=== PATIENT | female | born 2000 | race African-American/Black ===

== ENCOUNTER 2018-08-29 02:17 | Emergency (ER) | payer OTHER ==
[2018-08-29] MEDS ORDERED: ACETAMINOPHEN 325 MG TABLET PO ONE (05:35)
[2018-08-29] MEDS ORDERED: CLINDAMYCIN HCL 150 MG CAPSULE PO ONE ×2 (05:48)
--- NOTE | 2018-08-29 05:52 | ER Document Report ---
HPI - HPI Patient complains to provider of: tooth pain Time Seen by Provider: 08/29/18 05:35 Pain Level: 4 Context: Patient is a 18-year-old female presents to the emergency department for left lower tooth pain. Patient states she has had a left lower tooth pain for "a minute now." States that she was in the waiting room she noticed some pus and blood in her mouth and a sharp pain in her left lower tooth. States she was able to spit out that pus and blood but continues with generalized plane. Tooth in question is #18. Patient states she knows that she had a filling removed a couple of months ago after eating some candy. Patient states she does have an appointment with a dentist on 09 September. Patient is denying any fevers. - REPRODUCTIVE Reproductive: DENIES: : Past Medical History - General Information source: Patient - Social History Smoking Status: Unknown if Ever Smoked Family History: Reviewed & Not Pertinent Vertical Provider Document - CONSTITUTIONAL Agree With Documented VS: Yes Notes: GENERAL: Alert, interacts well. No acute distress. HEAD: Normocephalic, atraumatic. EYES: Pupils equal, round, and reactive to light. Extraocular movements intact. ENT: Oral mucosa moist, tongue midline. Tooth in question #18, erythema noted to the gumline, no area of fluctuance or induration noted. Tooth major decay, other dentition appears well kept. No Ludewig's angina noted NECK: Full range of motion. Supple. Trachea midline. No lymphadenopathy appreciated LUNGS: Clear to auscultation bilaterally, no wheezes, rales, or rhonchi. No respiratory distress. HEART: Regular rate and rhythm. No murmur ABDOMEN: Soft, non-tender. Non-distended. Bowel sounds present in all 4 quadrants. EXTREMITIES: Moves all 4 extremities spontaneously. No edema, normal radial and dorsalis pedis pulses bilaterally. No cyanosis. BACK: no cervical, thoracic, lumbar midline tenderness. No saddle anesthesia, normal distal neurovascular exam. NEUROLOGICAL: Alert and oriented x3. Normal speech. cranial nerves II through XII grossly intact PSYCH: Normal affect, normal mood. SKIN: Warm, dry, normal turgor. No rashes or lesions noted. - INFECTION CONTROL TRAVEL OUTSIDE OF THE [place] IN LAST 30 DAYS: No Course - Re-evaluation Re-evalutation: 05/31/19 05:50 Discussed use of [id number] Tylenol Motrin for generalized pain and also clindamycin as antibiotic choice. Discussed need to continue following up with dentist and return precautions. Patient stable for discharge - Vital Signs Vital signs: Temp Pulse Resp BP Pulse Ox 98.1 F 57 L 16 120/73 98 08/29/18 02:23 08/29/18 02:23 08/29/18 02:23 08/29/18 02:23 08/29/18 02:23 Discharge - Discharge Clinical Impression: Toothache, Dental caries Condition: Stable Disposition: HOME, SELF-CARE Instructions: Toothache ([facility]), [facility], Clindamycin ([facility]) Additional Instructions: As we discussed you have been seen and treated in the emergency department for a tooth infection. Please make sure you take [id number] Tylenol alternated with Motrin and also antibiotics as prescribed. Please make sure you keep your dental appointment and follow-up with your primary care provider. Return to the emergency room for any other concerns Prescriptions: Clindamycin HCl [Cleocin 150 mg Capsule] 450 mg PO Q8 7 Days capsule Forms: Return to Work Referrals: [facility] [Provider Group] - Follow up as needed
[2018-08-29 06:06] VITALS: BP 125/73
== END 2018-08-29 06:08 | disposition home or self-care (01) ==
LOC: ER 02:17
DX: K02.9 Dental caries, unspecified (principal); K08.89 Other specified disorders of teeth and supporting structures
CPT/HCPCS: 99282